=== PATIENT | male | born 1955 | race Caucasian/White ===

== ENCOUNTER → 2016-12-22 | Day surgery (SDC) | payer BC ==
--- NOTE | 2016-10-31 07:18 | History & Physical Bridge Note ---
H&P Re-Evaluation Bridge Note: I have examined the patient, reviewed the History & Physical and in the interval since the performance of the History & Physical I have noted the following changes of clinical significance: No changes noted
[2016-12-09 10:00] VITALS: BMI 31.0
--- NOTE | 2016-12-09 10:35 | PAT Medication Instructions ---
Service Date Dec 09, 2016. Current Home Medication List Ibuprofen (Advil), 800 MG PO PRN Omeprazole (Prilosec), 20 MG PO QAM PRN for RN [Bp Med], 1 TAB PO QAM [Cholesterol Med], 1 TAB PO QPM [Metoprol], 1 TAB PO QAM Medication Instructions For Your Scheduled Surgery Ibuprofen (Advil), 800 MG PO PRN (check with surgeon's office for instructions) [Bp Med], 1 TAB PO QAM (call Mary at PAT office with name and instructions will be given) [Cholesterol Med], 1 TAB PO QPM (call Mary at PAT office with name and instructions will be given) - Take the following medications the morning of surgery with a sip of water: Metoprolol 1 TAB PO QAM Omeprazole (Prilosec), 20 MG PO QAM PRN for RN If you have any questions please call us at [phone] or [phone] ( Mary) or [phone]
--- NOTE | 2016-12-09 10:59 | DIAGNOSTIC IMAGING REPORT ---
CHEST PREADMISSION(PA/LAT) CLINICAL HISTORY: Preoperative chest COMPARISON STUDY: No previous studies for comparison. FINDINGS: The cardiac and mediastinal contours are normal. There is no evidence of focal pulmonary consolidation. There is no evidence of failure. No pleural effusions are visualized.[ IMPRESSION: No active disease in the chest. Electronically signed by: Juwan Miranda M.D. 12/09/2016 10:57 AM Dictated Date/Time: 12/09/2016 10:57 AM
[2016-12-09 11:38] LABS: BASO % 0.5 %; BASO ABS # 0.05 K/uL (0-0.2); COMPLETE YES; EOS % 2.5 %; HEMATOCRIT 44.1 % (42-52); IG% 0.6 %; LYMPH % 22.9 %; MEAN CELL VOLUME 87.7 fL (80-100); MEAN CORPUSCULAR HEMOGLOBIN 30.2 pg (25-34); MEAN CORPUSCULAR HGB CONC 34.5 g/dl (32-36); MEAN PLATELET VOLUME 8.9 fL (7.4-10.4); MONO % 10.3 %; NEUT % 63.2 %; PLATELET COUNT 381 K/uL (130-400); RED BLOOD COUNT 5.03 M/uL (4.7-6.1); WHITE BLOOD COUNT 9.62 K/uL (4.8-10.8)
[2016-12-09 12:02] LABS: BUN/CREATININE RATIO 13.9 (10-20); CALCIUM 9.2 mg/dl (8.5-10.1); CREATININE 0.97 mg/dl (0.60-1.40); POTASSIUM 4.3 mmol/L (3.5-5.1)
--- NOTE | 2016-12-18 14:07 | HISTORY & PHYSICAL EXAMINATION ---
DATE OF ADMISSION: 12/22/2016 HISTORY OF PRESENT ILLNESS: The patient presents with complaint of left leg pain with numbness and tingling. He is wearing an AFO brace. He is always changing positions to alleviate his pain. Denies right lower extremity pain. PAST MEDICAL HISTORY: Significant for hypertension. PAST SURGICAL HISTORY: Significant for lumbar laminectomy. ALLERGIES: None listed. MEDICATIONS: None listed. SOCIAL HISTORY: He works as a truck loader and unloader. He is . He denies alcohol. Denies tobacco. REVIEW OF SYSTEMS: Significant for back and left leg pain. FAMILY HISTORY: Noncontributory. PHYSICAL EXAMINATION: VITAL SIGNS: 6 feet tall, 223 pounds. HEAD, EYES, EARS, NOSE, AND THROAT: Speech appropriate. CARDIOPULMONARY: No gross abnormalities. ABDOMEN: Soft, nontender. GENITOURINARY: Deferred. NEUROLOGIC: Cranial nerves II-XII intact. MUSCULOSKELETAL: He has a positive tension sign on the left, negative on the right. He has weakness over the left anterior tibialis, EHL and plantar flexion with 2/5. He has some paresthesias on the left foot as well as some swelling of the left foot. Strength is intact right leg. ASSESSMENT: L4-L5 disc herniation, establish foot drop. PLAN: At this point in time, he has failed conservative therapy and still quite limited due to the pain. He wants to pursue surgical intervention. Surgery would require lumbar laminectomy at L4-L5 on the left. Risks, benefits, pros, cons, and alternatives were outlined in detail. VELMA
[~2016-12-22] VITALS: Ht 182.9 cm; Wt 103.7 kg
[~2016-12-22] MED LIST: ACETAMINOPHEN 325 MG TAB PO PRN; AMLO5TAB2 PO; ATROPINE SULFATE 0.1 MG/ML 5ML SYR IV PRN; BACITRACIN 50000 UNIT VIAL IR ONE; BUPIVACAINE/EPINEPHRINE 0.5% MPF 1:200,000 30 ML VIAL INJ ONE; CEFAZOLIN 1000MG/55 ML D5W IV SCH; CEFAZOLIN SOD 1 GM VIAL ONE; CYCL5TAB PO; DEXAMETHASONE SOD INJ 4 MG/ML VIAL ONE; EpHEDrine SULFATE INJ 50 MG/ML AMP IV PRN; FENTANYL CITRATE INJ 50 MCG/1 ML 2 ML VIAL ONE; FLOSEAL HEMOSTATIC MATRIX 5ML TOP ONE; FLUMAZENIL 0.1 MG/1 ML 10 ML VIAL IV PRN; GLYCOPYRROLATE INJ 0.2 MG/ML VIAL ONE; HYDROmorphone INJ 1 MG/ML SYR IV PRN; HYDROmorphone INJ 2 MG/ML SYR/VIAL IV PRN; IBUP-1050 PO; KETOROLAC TROMETHAMINE 30 MG/ML VIAL IV. PRN; LABETALOL HCL IV 5 MG/ML 20ML IV PRN; LACTATED RINGER'S 1000ML 1,000 ML IV SCH; LIDOCAINE HCL 2% 2 ML VIAL (20MG/ML) ONE; METO1TAB66 PO; MIDAZOLAM HCL 1 MG/ML 2ML VIAL ONE; NALOXONE HCL 0.4 MG/1 ML VIAL/CARP IV PRN; NEOSTIGMINE METHYLSULFATE 1 MG/ML 10ML VIAL ONE; ONDANSETRON INJ 2 MG/ML 2 ML VIAL ONE; OXYCODONE HCL IR 5 MG TAB (IMMEDIATE RELEASE) PO PRN; PRLSR20 PO; PROMETHAZINE HCL INJ 12.5 MG in SODIUM CHLORIDE 0.9% 50ML 50 ML IV PRN; PROPOFOL IV EMULSION 10 MG/ML 20 ML VIAL IV ONE; ROCURONIUM BROMIDE 10 MG/ML 5 ML VIAL ONE; RXC5 PO; SIMV40TA4 PO; SIMV80TA2 PO; [UNRECOGNIZED DRUG - OTHER]
[2016-12-22 06:47] VITALS: BP 143/81; PULSE 85; TEMP 36.7; O2SAT 94; Ht 182.9 cm; Wt 103.7 kg
--- NOTE | 2016-12-22 08:44 | Discharge Instructions ---
Discharge Instructions Admission Reason for Admission: Lumbar Spinal Stenosis Discharge Discharge Diagnosis / Problem: stenosis Discharge Goals Goal(s): Improve function Activity Recommendations Activity Limitations: per Instructions/Follow-up section . Instructions / Follow-Up Instructions / Follow-Up ACTIVITY RECOMMENDATIONS: SELF CARE INSTRUCTIONS AFTER A LAMINECTOMY 1. No prolonged sitting (less than 30 minutes for the first 3 weeks after surgery). 2. No bending, lifting more than 5 pounds, or twisting (roll like a log when turning in bed). 3. You may shower 3 days after surgery if no drainage from wound. Thoroughly dry wound. Do not soak in the tub. 4. Please walk as much as you can for exercise. Gradually increase the distance that you walk as your endurance increases. 5. You may drive in 7-10 days if you are comfortable and no longer requiring pain medications. SPECIAL CARE INSTRUCTIONS: VERY IMPORTANT TO READ AND REVIEW A. Your surgical incision has been closed with a cosmetic suture under the skin that will dissolve in about 6 weeks. In 14 days, you can use a pair of clean scissors and cut the suture that is left outside of the skin at the ends of your incision. B. Complications are uncommon, but please contact us if you have any signs or symptoms of: 1. wound infection (fever higher than 102.5 degrees F, redness, separation of wound, drainage, or increasing pain from the incision) 2. blood clots in legs (pain, swelling, redness and warmth in legs) 3. urinary tract infection (fever higher than 102.5 degrees, burning upon urination or increased frequency of urination) 4. nerve problems (inability to walk on your toes or heels, numbness, loss of bowel or bladder control) 5. any other symptoms that concern you. C. Please call the office at if you have any concerns or questions about your operation or recovery. MANAGING PAIN AFTER SPINAL SURGERY 1. Narcotic medication is intended for short-term use and will be provided for surgical pain. Surgical pain usually lasts for a period of 4-6 weeks. Narcotic medication includes Percocet, Vicodin, Darvocet, Tylenol #3 or Lortab. 2. Longer-term pain is more appropriately treated with non-narcotic medication such as Tylenol ES. 3. Muscle spasm is not appropriately treated with narcotics. Muscle relaxers such as Soma, Flexeril or Skelaxin can be used along with Tylenol ES. 4. Remember that we all live with some "aches and pains". This is not unusual or uncommon after an injury or as we get older. 5. We will provide appropriate medication within the normal guidelines of their prescribed use. We will also be very cautious and aware of potential abuse and extended duration of patients' medication needs. 6. Please allow 2-3 days to process refills. Prescriptions will not be mailed but must be picked up at the office. FOLLOW UP VISIT: Keep your scheduled follow-up appointment. Any questions, please call the office at . Current Hospital Diet Patient's current hospital diet: Discharge Diet Recommended Diet: Regular Diet Procedures Procedures Performed: Left L4-L5 Discectomy Pending Studies Studies pending at discharge: no Medical Emergencies . Who to Call and When: Medical Emergencies: If at any time you feel your situation is an emergency, please call 911 immediately. . Non-Emergent Contact Non-Emergency issues call your: Primary Care Provider . "Provider Documentation" section prepared by Guicho Gooden. VTE Core Measure Inpt VTE Proph given/why not?: Dian Bates, SCD's
--- NOTE | 2016-12-22 09:09 | OPERATIVE REPORT ---
DATE OF OPERATION: 12/22/2016 PREOPERATIVE DIAGNOSIS: Herniated nucleus pulposus, L4-5 on the left. POSTOPERATIVE DIAGNOSIS: Same. PROCEDURE PERFORMED: Lumbar laminotomy, excision of herniated fragment L4-L5 on the left. SURGEON: Dr. Guicho Gooden. CDL INSTRUCTOR: LIV Chadwick. ANESTHESIA: General. DISPOSITION: The patient awakened and taken to PACU in stable condition. HISTORY OF PATIENT'S PROBLEMS: A 61-year-old male who presents with above-mentioned diagnosis. After failing an extensive course of nonoperative care, elected to undergo the above-mentioned procedure. Risks, benefits, pros, cons and alternatives outlined in detail preoperatively. PROCEDURE: The patient was met with preoperatively, case discussed and questions were addressed. At that point the patient was taken back to operative suite and after undergoing successful general intubation by the department of Anesthesia was placed in prone position on Vicente table atop Pedro frame. All bony prominences were well padded and the eyes were inspected to ensure there was no external pressure placed upon them. At this point, the lumbar spine was prepped and draped in normal sterile fashion. With the assistance of fluoroscopy, we identified the 4-5 disc space. Midline incision was carried out overlying this region. Sharp dissection with the assistance of Bovie electrocautery was performed down to and exposing the interlaminar space at L4-L5 on the left. A self-retaining retractor was placed. I then performed a hemilaminotomy, excision of the medial aspect of the facet and the lateral aspect of the ligamentum flavum to expose a compressed traversing L5 nerve root. This was explored to ensure that it was adequately decompressed distally. It was mobilized medially and any loose fragments of discal material were identified. The nerve root appeared to have significant decompression after exploration. The incision was then copiously irrigated and closed with 1-0 Vicryl in the fascia, 2-0 Vicryl subcutaneously, 4-0 Monocryl for final skin closure. Steri-Strips and sterile dressing placed. The patient was awakened and taken to PACU in stable condition. Due to the complex nature of the procedure, the entire surgery was performed with the operational assistance of LIV Chadwick. The training program assistant, under direct supervision, was involved in the actual performance of all aspects of the surgical procedure including hemostasis, tissue retraction and incision, instrument management, patient positioning, and wound closure. I attest to the content of the Intraoperative Record and any orders documented therein. Any exceptio ns are noted below.
--- NOTE | 2016-12-22 09:39 | Anesthesiology Progress Note ---
Anesthesia Post Op Note Date & Time Dec 22, 2016 at 09:38 Vital Signs Pain Intensity: 0 Vital Signs Past 12 Hours Date Time Temp Pulse Resp B/P Pulse Ox O2 Delivery O2 Flow Rate FiO2 12/22/16 09:35 80 16 130/78 96 Nasal Cannula 2 12/22/16 09:25 83 16 135/82 95 Nasal Cannula 2 12/22/16 09:15 78 12 137/81 95 Mask 10 12/22/16 09:05 81 12 136/75 95 Mask 10 12/22/16 08:59 36.8 81 12 138/81 98 Mask 10 12/22/16 06:47 36.7 85 18 143/81 94 Room Air Notes Mental Status: alert / awake / arousable, participated in evaluation Pt Amnestic to Procedure: Yes Nausea / Vomiting: adequately controlled Pain: adequately controlled Airway Patency, RR, SpO2: stable & adequate BP & HR: stable & adequate Hydration State: stable & adequate Anesthetic Complications: no major complications apparent
[2016-12-22 11:05] VITALS: BP 111/68; PULSE 80; TEMP 36.9; O2SAT 93
--- NOTE | 2016-12-22 12:57 | DIAGNOSTIC IMAGING REPORT ---
INTRAOPERATIVE FLUOROSCOPIC SPOT FILM OF THE LUMBAR SPINE SINGLE VIEW CLINICAL HISTORY: L4-L5 DISCECTOMY COMPARISON STUDY: None FINDINGS: A single fluoroscopic spot images provided for interpretation. 5 seconds of fluoroscopic time was utilized. This reveals a metallic probe projected posterior aspect of the L4-5 disc. IMPRESSION: Intraoperative localization as described above. Electronically signed by: Juwan Miranda M.D. 12/22/2016 12:55 PM Dictated Date/Time: 12/22/2016 12:54 PM
== END | disposition home or self-care (01) ==
LOC: C.ACU 05:17
PROVIDERS: ATTEND Orthopaedic Surgery Orthopaedic Surgery of the Spine
DX: M51.16 Intervertebral disc disorders with radiculopathy, lumbar region (principal); I10 Essential (primary) hypertension

== ENCOUNTER → 2017-05-15 | Outpatient (CLI) | payer OTHER ==
[~2017-05-15] MED LIST changes: -ACETAMINOPHEN 325 MG TAB PO PRN; -ATROPINE SULFATE 0.1 MG/ML 5ML SYR IV PRN; -BACITRACIN 50000 UNIT VIAL IR ONE; -BUPIVACAINE/EPINEPHRINE 0.5% MPF 1:200,000 30 ML VIAL INJ ONE; -CEFAZOLIN 1000MG/55 ML D5W IV SCH; -CEFAZOLIN SOD 1 GM VIAL ONE; -DEXAMETHASONE SOD INJ 4 MG/ML VIAL ONE; -EpHEDrine SULFATE INJ 50 MG/ML AMP IV PRN; -FENTANYL CITRATE INJ 50 MCG/1 ML 2 ML VIAL ONE; -FLOSEAL HEMOSTATIC MATRIX 5ML TOP ONE; -FLUMAZENIL 0.1 MG/1 ML 10 ML VIAL IV PRN; -GLYCOPYRROLATE INJ 0.2 MG/ML VIAL ONE; -HYDROmorphone INJ 1 MG/ML SYR IV PRN; -HYDROmorphone INJ 2 MG/ML SYR/VIAL IV PRN; -KETOROLAC TROMETHAMINE 30 MG/ML VIAL IV. PRN; -LABETALOL HCL IV 5 MG/ML 20ML IV PRN; -LACTATED RINGER'S 1000ML 1,000 ML IV SCH; -LIDOCAINE HCL 2% 2 ML VIAL (20MG/ML) ONE; +METO-452 PO; -METO1TAB66 PO; -MIDAZOLAM HCL 1 MG/ML 2ML VIAL ONE; -NALOXONE HCL 0.4 MG/1 ML VIAL/CARP IV PRN; -NEOSTIGMINE METHYLSULFATE 1 MG/ML 10ML VIAL ONE; -ONDANSETRON INJ 2 MG/ML 2 ML VIAL ONE; -OXYCODONE HCL IR 5 MG TAB (IMMEDIATE RELEASE) PO PRN; -PROMETHAZINE HCL INJ 12.5 MG in SODIUM CHLORIDE 0.9% 50ML 50 ML IV PRN; -PROPOFOL IV EMULSION 10 MG/ML 20 ML VIAL IV ONE; -ROCURONIUM BROMIDE 10 MG/ML 5 ML VIAL ONE
--- NOTE | 2017-05-20 10:15 | DIAGNOSTIC IMAGING REPORT ---
LUMBAR SPINE MRI HISTORY: SCIATICA W/LUMBAR SPINE PAIN TECHNIQUE: Multiplanar multisequence MRI of the lumbar spine was performed without the use of contrast. COMPARISON: None. FINDINGS: For the purpose of the report the L5-S1 disc space will be located on axial image 23 of 25. No fracture or subluxation. The conus terminates at the T12-L1 disc space level. Mild disc space narrowing at L5-S1. Partially visualized 12 mm T2 hyperintense lesion within the left kidney. This is incompletely characterized on this noncontrasted favors a cyst. Paraspinal soft tissues are unremarkable. T12-L1: Small focal central disc protrusion demonstrating inferior subligamentous migration. However, no significant central canal or neural foraminal narrowing. L1-L2: No significant central canal or neural foraminal narrowing. L2-L3: No significant central canal or neural foraminal narrowing. L3-L4: No significant central canal or neural foraminal narrowing. L4-L5: Prior left hemilaminectomy. There is mild edema and scarlike densities posterior to the left hemilaminectomy site. There is a central/left paracentral broadbase disc protrusion which measures 1.8 (TV) x 0.5 (AP) cm. There is also small broad-based posterior disc bulge. This results in moderate to severe central canal narrowing, left greater than right with mild left-sided neural foraminal narrowing. This disc protrusion slightly compresses the transiting left L5 nerve root. L5-S1: Evidence for prior left hemilaminectomy. Small broad-based posterior disc bulge with a tiny focal central disc protrusion demonstrating inferior subligamentous migration. No significant central canal narrowing. There is severe left and mild right neural foraminal narrowing due to the facet hypertrophy. There is clumping of the nerve roots at this level suggestive of an arachnoiditis. IMPRESSION: 1. Postoperative changes consistent with prior left L4-L5 and L5-S1 hemilaminectomies. 2. There is a broad-based posterior disc bulge with a central/left paracentral broadbase disc protrusion at L4-5 resulting in moderate to severe central canal narrowing. This likely compresses the transiting left L5 nerve root. 3. Severe left and mild right neural foraminal narrowing at L5-S1 level due to the facet hypertrophy. 4. Clumping of the nerve roots at the L5 level likely representing an arachnoiditis. Electronically signed by: Nico Wright M.D. 05/20/2017 10:14 AM Dictated Date/Time: 05/15/2017 11:25 PM
== END | disposition home or self-care (01) ==
LOC: C.MRI 18:27
PROVIDERS: ATTEND Orthopaedic Surgery Orthopaedic Surgery of the Spine
DX: M53.9 Dorsopathy, unspecified (principal); M51.26 Other intervertebral disc displacement, lumbar region

== ENCOUNTER 2017-06-29 10:05 | Inpatient (IN) | payer OTHER ==
[2017-06-12 11:10] VITALS: BMI 33.0
--- NOTE | 2017-06-12 11:41 | PAT Medication Instructions ---
Service Date Jun 12, 2017. Current Home Medication List Amlodipine Besylate (Norvasc), 1 TAB PO QAM Cyclobenzaprine Hcl (Flexeril), 5-10 MG PO TID PRN for N Ibuprofen (Advil), 800 MG PO PRN Metoprolol Succinate (Toprol Xl), 1 TAB PO QAM Omeprazole (Prilosec), 20 MG PO QAM PRN for RN Simvastatin (Zocor), 80 MG PO HS Medication Instructions For Your Scheduled Surgery - Hold the following medications the morning of surgery: Ibuprofen (Advil), 800 MG PO PRN (otherwise okay to continue per surgeon) Cyclobenzaprine Hcl (Flexeril), 5-10 MG PO TID PRN - Take the following medications the morning of surgery with a sip of water OTHERWISE NOTHING TO EAT OR DRINK AFTER MIDNIGHT: Omeprazole (Prilosec), 20 MG PO QAM PRN Amlodipine Besylate (Norvasc), 1 TAB PO QAM Metoprolol Succinate (Toprol Xl), 1 TAB PO QAM - Take the following medications as scheduled the night before surgery: Simvastatin (Zocor), 80 MG PO HS Ibuprofen (Advil), 800 MG PO PRN Cyclobenzaprine Hcl (Flexeril), 5-10 MG PO TID PRN If you have any questions please call us at [phone] or [phone] or [phone]
[2017-06-12 12:19] LABS: BASO % 0.5 %; BASO ABS # 0.04 K/uL (0-0.2); COMPLETE YES; HEMATOCRIT 44.2 % (42-52); IG% 0.6 %; LYMPH % 28.1 %; LYMPH ABS # 2.38 K/uL (1.2-3.4); MEAN CELL VOLUME 86.8 fL (80-100); MEAN CORPUSCULAR HGB CONC 35.7 g/dl (32-36); MEAN PLATELET VOLUME 8.6 fL (7.4-10.4); MONO % 10.7 %; NEUT % 58.1 %; PLATELET COUNT 335 K/uL (130-400); RED BLOOD COUNT 5.09 M/uL (4.7-6.1); WHITE BLOOD COUNT 8.47 K/uL (4.8-10.8)
[2017-06-12 12:42] LABS: BUN/CREATININE RATIO 13.6 (10-20); CALCIUM 9.5 mg/dl (8.5-10.1); POTASSIUM 4.4 mmol/L (3.5-5.1)
[2017-06-12 16:36] LABS: URINE APPEARANCE CLEAR (CLEAR); URINE BILIRUBIN NEG (NEG); URINE COLOR YELLOW; URINE EPITHELIAL CELL AUTO 0-5 /lpf (0-5); URINE NITRITE NEG (NEG); URINE PH 7.5 (4.5-7.5); URINE SPECIFIC GRAVITY 1.012 (1.000-1.030); UROBILINOGEN NEG (NEG)
[2017-06-12 16:50] LABS: MANUAL MICROSCOPIC REQUIRED? NO; REVIEW REQ? NO
[~2017-06-29] VITALS: Ht 182.9 cm; Wt 111.2 kg
[2017-06-29] VITALS (7 sets, daily range): BP systolic 136–170; BP diastolic 79–104; PULSE 80–92; TEMP 36.3–36.6; O2SAT 94–100; Ht 182.9 cm; Wt 111.2 kg
[~2017-06-29 10:05] MED LIST changes: +CEFAZOLIN 2000 MG/60 ML D5W IV SCH; +LACTATED RINGER'S 1000ML 1,000 ML IV SCH; -METO-452 PO; +METO1TAB66 PO; -RXC5 PO; -SIMV40TA4 PO; -[UNRECOGNIZED DRUG - OTHER]
[2017-06-29] MEDS ORDERED: PHENYLEPHRINE 100MCG/ML 5ML SYR IV PRN (10:30)
[2017-06-29] MEDS ORDERED: ONDANSETRON INJ 2 MG/ML 2 ML VIAL IV PRN (10:30)
[2017-06-29] MEDS ORDERED: ATROPINE SULFATE 0.1 MG/ML 5ML SYR IV PRN (10:30)
[2017-06-29] MEDS ORDERED: MEPERIDINE HCL 25 MG/ML CARP IV PRN (10:30)
[2017-06-29] MEDS ORDERED: NALOXONE HCL 0.4 MG/1 ML VIAL/CARP IV PRN ×3 (10:30→14:45)
[2017-06-29] MEDS ORDERED: MoRPHine SULFATE 10 MG/ML CARP/VIAL IV PRN (10:30)
[2017-06-29] MEDS ORDERED: LABETALOL HCL IV 5 MG/ML 20ML IV PRN (10:30)
[2017-06-29] MEDS ORDERED: EpHEDrine SULFATE INJ 50 MG/ML AMP IV PRN (10:30)
[2017-06-29] MEDS ORDERED: FLUMAZENIL 0.1 MG/1 ML 10 ML VIAL IV PRN (10:30)
--- NOTE | 2017-06-29 11:17 | History and Physical ---
History & Physical Date Jun 29, 2017. Chief Complaint Back and leg pain History of Present Illness The patient is a 61 year old male with complaints of back and leg pain Additional History Hepatic Disease: No Endocrine Disorder: No Kidney Disease: No Hypertension: Yes Heart Disease: No Bleeding Tendencies: No Infectious Diseases: No Allergies Coded Allergies: No Known Allergies (Unverified , 06/29/17) Home Medications Scheduled Amlodipine Besylate (Norvasc), 1 TAB PO QAM Ibuprofen (Advil), 800 MG PO PRN Metoprolol Succinate (Toprol Xl), 1 TAB PO QAM Simvastatin (Zocor), 80 MG PO HS Scheduled PRN Cyclobenzaprine Hcl (Flexeril), 5-10 MG PO TID PRN for N Omeprazole (Prilosec), 20 MG PO QAM PRN for RN Physical Examination Skin: warm/dry, no rash Eyes: normal inspection, EOMI, sclerae normal ENT: normal ENT inspection, pharynx normal Head: normocephalic, atraumatic Neck: supple, no adenopathy, trachea midline Respiratory/Chest: lungs clear, normal breath sounds, no respiratory distress Cardiovascular: regular rate, rhythm, no edema, no murmur Abdomen / GI: normal bowel sounds, non tender Back: normal inspection Extremities: normal inspection, normal range of motion Neurologic/Psych: no motor/sensory deficits, alert, normal reflexes, oriented x 3 Diagnosis Lumbar spinal stenosis Plan of Treatment Revision decompression L4 5 L5-S1 with fusion.
[2017-06-29] MEDS ORDERED: FENTANYL CITRATE INJ 50 MCG/1 ML 2 ML VIAL ONE ×3 (11:24→14:47)
[2017-06-29] MEDS ORDERED: MIDAZOLAM HCL 1 MG/ML 2ML VIAL ONE (11:24)
[2017-06-29] MEDS ORDERED: SODIUM CHLORIDE 0.9% PF 50 ML VIAL ONE (11:55)
[2017-06-29] MEDS ORDERED: BUPIVACAINE/EPINEPHRINE 0.5% MPF 1:200,000 10 ML VIAL ONE ×2 (11:55→11:56)
[2017-06-29] MEDS ORDERED: BACITRACIN 50000 UNIT VIAL ONE (11:56)
[2017-06-29] MEDS ORDERED: HYDROmorphone INJ 2 MG/ML SYR/VIAL ONE ×2 (12:38→15:05)
[2017-06-29] MEDS ORDERED: LIDOCAINE HCL 2% 2 ML VIAL (20MG/ML) ONE (13:46)
[2017-06-29] MEDS ORDERED: NEOSTIGMINE METHYLSULFATE 1 MG/ML 10ML VIAL ONE ×2 (13:46→17:03)
[2017-06-29] MEDS ORDERED: ONDANSETRON INJ 2 MG/ML 2 ML VIAL ONE (13:46)
[2017-06-29] MEDS ORDERED: EpHEDrine SULFATE 50MG/5ML SYR ONE (13:46)
[2017-06-29] MEDS ORDERED: PROPOFOL IV EMULSION 10 MG/ML 20 ML VIAL IV ONE (13:46)
[2017-06-29] MEDS ORDERED: DEXAMETHASONE SOD INJ 4 MG/ML VIAL ONE (13:46)
[2017-06-29] MEDS ORDERED: GLYCOPYRROLATE INJ 0.2 MG/ML VIAL ONE (13:46)
[2017-06-29] MEDS ORDERED: ROCURONIUM BROMIDE 10 MG/ML 5 ML VIAL ONE (13:46)
[2017-06-29] MEDS ORDERED: FLOSEAL HEMOSTATIC MATRIX 10ML TOP ONE (14:30)
[2017-06-29] MEDS: LACTATED RINGER'S 1000ML 1,000 ML IV SCH ×2 (14:40→21:39)
[2017-06-29] MEDS ORDERED: SODIUM CHLORIDE 0.9% 1000ML 1,000 ML IV SCH (14:40)
[2017-06-29] MEDS ORDERED: MAGNESIUM HYDROXIDE SUSP 30 ML UDC PO PRN (14:45)
[2017-06-29] MEDS ORDERED: DO NOT ADMINISTER PNEUMOCOCCAL VACCINE PRN ×2 (14:45)
[2017-06-29] MEDS ORDERED: SOD PHOSPHATE/SOD BIPHOSPHATE ENEMA 132 ML BTL PR PRN (14:45)
[2017-06-29] MEDS ORDERED: DO NOT ADMINISTER FLU VACCINE PRN ×3 (14:45)
[2017-06-29] MEDS ORDERED: LORAZEPAM 0.5 MG TAB PO PRN (14:45)
[2017-06-29] MEDS ORDERED: FAMOTIDINE 20 MG TAB PO PRN (14:45)
[2017-06-29] MEDS ORDERED: PROMETHAZINE HCL INJ 12.5 MG in SODIUM CHLORIDE 0.9% 50ML 50 ML IV PRN (14:45)
[2017-06-29] MEDS ORDERED: ACETAMINOPHEN 500 MG TAB PO PRN (14:45)
[2017-06-29] MEDS ORDERED: hydrOXYzine HCL 25 MG TAB PO PRN (14:45)
[2017-06-29] MEDS ORDERED: METOCLOPRAMIDE HCL INJ 5 MG/ML 2 ML VIAL IV PRN (14:45)
[2017-06-29] MEDS ORDERED: LORAZEPAM INJ 0.5 MG in SYRINGE 0.75 ML IV PRN (14:45)
[2017-06-29] MEDS ORDERED: ACETAMINOPHEN IV 100 ML IV PRN (14:45)
--- NOTE | 2017-06-29 14:46 | [facility] Operative Report ---
Operative Report Operative Date Jun 29, 2017. Pre-Operative Diagnosis Lumbar Stenosis Post-Operative Diagnosis same Procedure(s) Performed #1 revision decompression medial facetectomies foraminotomies L4 5 L5-S1. #2 posterior spinal fusion L4 5 L5-S1. #3 placement of posterior segmental instrumentation L4 5 L5-S1. #4 interbody fusion L4 5. #5 placement peek Cage 14 x 26 mm L4 5. 6 placement locally harvested morcellized autograft posterior gutters. #7 placement infuse collagen sponge by mask graft the posterior gutters and Jojo bone graft in the interbody space. Surgeon Dr. Guicho Gooden Python Consultant Surgeon(s) Trinh Platt PA-C Findings Severe spinal stenosis Specimens none per surgeon Description of Procedure Patient was met with probably case discussed all questions are dressed with the patient was taken back to the suite and after undergoing successful intubation placed in prone position injectables frame. All bony promises well-padded eyes inspected to ensure no external pressure. Lumbar spines and prepped and draped in the normal sterile fashion. Sharp dissection assistance of Bovie cautery performed onto an exposing the remaining lamina and transverse processes of L4- L5 and the alar bilaterally. From a caudal to cephalad fashion complete L5 and L4 was performed addressing severe lateral recess and foraminal disease. After this complete pedicle screws then placed in L4 L5 S1 levels bilaterally with assistance of fluoroscopy the purposes kateryna placed. Through a trans-foraminal approach on the left complete discectomy of L4 5 was performed and plate could subcortical need bone and a 14 x 26 mm peek cage filled with Jojo bone graft tapped in position. The rods and locked and final position bilaterally. Transverse processes of L4-L5 and the sacral alar burred to subcortical bleeding bone infuse collagen sponge mask graft and locally harvested morcellized autograft was placed in the posterior lateral gutters. 15 round MARY drain inserted. Incision then closed with 1 Vicryl in the fascia 2-0 Vicryl subcutaneously for Monocryl for final skin closure Steri-Strips are displaced patient we can taken to PACU stable condition. Please note Trinh Ruiz was present at the entire procedure involved in patient positioning complex portions of the procedure and final skin closure. I attest to the content of the Intraoperative Record and any orders documented therein. Any exceptions are noted below.
--- NOTE | 2017-06-29 14:51 | DIAGNOSTIC IMAGING REPORT ---
INTRAOPERATIVE LUMBAR SPINE 2 VIEWS CLINICAL HISTORY: L4-S1 DECOMPRESSION/FUSION/INTERBODY COMPARISON STUDY: MRI dated 05/15/2017 FINDINGS: 24 seconds of fluoroscopic time was utilized. 2 intraoperative fluoroscopic spot images are provided for interpretation. There are postsurgical changes of an L4-5 discectomy and interbody fusion. There is posterior pedicle screw fixation with pedicle screws the L4, L5, and S1 levels with adjoining spinal rods. IMPRESSION: Postoperative changes as described above. Electronically signed by: Juwan Miranda M.D. 06/29/2017 2:49 PM Dictated Date/Time: 06/29/2017 2:48 PM
[2017-06-29] MEDS: HYDROmorphone INJ 1 MG/ML SYR IV PRN ×4 (15:05→15:20)
[2017-06-29] MEDS: HYDROmorphone HCL 0.5MG/ML 50 ML CASSETTE IV PRN ×3 (15:10→22:51)
[2017-06-29] MEDS ORDERED: SUCCINYLCHOLINE 100MG/5ML SYR IV ONE (15:51)
--- NOTE | 2017-06-29 16:04 | Anesthesiology Progress Note ---
Anesthesia Post Op Note Date & Time Jun 29, 2017 at 16:03 Vital Signs Pain Intensity: 4 Vital Signs Past 12 Hours Date Time Temp Pulse Resp B/P (MAP) Pulse Ox O2 Delivery O2 Flow Rate FiO2 06/29/17 15:30 36.4 87 16 145/85 95 Nasal Cannula 4 06/29/17 15:20 87 16 145/94 98 Oxymask 10 06/29/17 15:10 87 16 129/102 98 Oxymask 10 06/29/17 15:00 36.6 97 16 149/92 98 Oxymask 10 06/29/17 10:24 36.3 88 20 170/104 98 Room Air Notes Mental Status: alert / awake / arousable, participated in evaluation Pt Amnestic to Procedure: Yes Nausea / Vomiting: adequately controlled Pain: adequately controlled Airway Patency, RR, SpO2: stable & adequate BP & HR: stable & adequate Hydration State: stable & adequate Anesthetic Complications: no major complications apparent
[2017-06-29] MEDS ORDERED: KETAMINE HCL INJ 50 MG/ML 10 ML VIAL ONE (16:15)
[2017-06-29] MEDS: ONDANSETRON INJ 2 MG/ML 2 ML VIAL IV PRN (16:42)
[2017-06-29] MEDS ORDERED: MoRPHine SULFATE 1 MG/ML 50 ML PCA CASS ONE (18:49)
[2017-06-29] MEDS ORDERED: MoRPHine SULFATE 10 MG/ML CARP/VIAL ONE (18:53)
[2017-06-29] MEDS ORDERED: MORPHINE SULFATE 1 MG/ML 50 ML PCA SYR IV PRN (19:00)
[2017-06-29] MEDS ORDERED: NURSING VERBAL MED ORDER ONE ×2 (19:00→19:15)
[2017-06-29] MEDS: DEXAMETHASONE INJ 6 MG in SYRINGE 0 ML IV SCH (20:17)
[2017-06-29] MEDS: CEFAZOLIN IV 2,000 MG in DEXTROSE 5% 50ML 50 ML IV SCH (20:17)
[2017-06-29] MEDS: DOCUSATE SODIUM/SENNA 50/8.6MG TAB PO SCH (21:39)
[2017-06-29] MEDS: SIMVASTATIN 80 MG TAB PO SCH (21:39)
[2017-06-30] VITALS (9 sets, daily range): BP systolic 136–161; BP diastolic 74–88; PULSE 87–112; TEMP 36.5–36.9; O2SAT 93–96
[2017-06-30] MEDS: LACTATED RINGER'S 1000ML 1,000 ML IV SCH (03:55)
[2017-06-30] MEDS: DEXAMETHASONE INJ 6 MG in SYRINGE 0 ML IV SCH ×2 (03:56→12:23)
[2017-06-30] MEDS: CEFAZOLIN IV 2,000 MG in DEXTROSE 5% 50ML 50 ML IV SCH (03:56)
[2017-06-30] MEDS: ONDANSETRON INJ 2 MG/ML 2 ML VIAL IV PRN (04:51)
[2017-06-30] MEDS ORDERED: NURSING DECISION MEDICATION ORDER SCH (05:45)
[2017-06-30 05:46] LABS: BASO % 0.1 %; BASO ABS # 0.01 K/uL (0-0.2); COMPLETE YES; HEMATOCRIT 39.3 % (42-52); IG% 0.4 %; LYMPH % 4.7 %; LYMPH ABS # 0.76 K/uL (1.2-3.4); MEAN CELL VOLUME 88.5 fL (80-100); MEAN CORPUSCULAR HEMOGLOBIN 30.4 pg (25-34); MEAN CORPUSCULAR HGB CONC 34.4 g/dl (32-36); MEAN PLATELET VOLUME 8.7 fL (7.4-10.4); MONO % 4.5 %; NEUT % 90.3 %; PLATELET COUNT 341 K/uL (130-400); RED BLOOD COUNT 4.44 M/uL (4.7-6.1); WHITE BLOOD COUNT 16.16 K/uL (4.8-10.8)
[2017-06-30] MEDS ORDERED: DC PCA ONE (06:00)
[2017-06-30] MEDS ORDERED: HYDROmorphone INJ 0.5 MG/0.5 ML SYR IV PRN (06:00)
[2017-06-30] MEDS ORDERED: HYDROmorphone INJ 1 MG/ML SYR IV PRN (06:00)
[2017-06-30 06:14] LABS: BUN/CREATININE RATIO 14.5 (10-20); CALCIUM 8.9 mg/dl (8.5-10.1); CREATININE 1.2 mg/dl (0.60-1.40)
--- NOTE | 2017-06-30 08:37 | Anesthesiology Progress Note ---
Anesthesia Post Op Note Date & Time Jun 30, 2017 at 08:36 Vital Signs Pain Intensity: 8.0 Vital Signs Past 12 Hours Date Time Temp Pulse Resp B/P (MAP) Pulse Ox O2 Delivery O2 Flow Rate FiO2 06/30/17 07:39 95 Room Air 06/30/17 07:38 36.8 96 18 136/88 (104) 95 Room Air 06/30/17 07:00 95 Room Air 06/30/17 06:27 93 Room Air 06/30/17 03:52 36.5 92 18 147/79 (101) 96 Nasal Cannula 2.0 06/30/17 00:30 Nasal Cannula 2.0 06/29/17 22:55 36.3 80 18 152/79 (103) 98 Nasal Cannula 3.0 Notes Mental Status: alert / awake / arousable, participated in evaluation Pt Amnestic to Procedure: Yes Nausea / Vomiting: improving with treatment Pain: improving with treatment Airway Patency, RR, SpO2: stable & adequate BP & HR: stable & adequate Hydration State: stable & adequate Anesthetic Complications: no major complications apparent
[2017-06-30] MEDS: METOPROLOL SUCC 50MG EXT REL TAB PO SCH (08:52)
[2017-06-30] MEDS: AMLODIPINE BESYLATE 5 MG TAB PO SCH (08:52)
[2017-06-30] MEDS: OXYCODONE HCL IR 5 MG TAB (IMMEDIATE RELEASE) PO PRN ×2 (09:37→16:31)
[2017-06-30] MEDS ORDERED: RXC5 PO (12:26)
--- NOTE | 2017-06-30 12:26 | Discharge Instructions ---
Discharge Instructions Date of Service Jun 30, 2017. Admission Reason for Admission: Lumbar Spinal Stenosis Discharge Discharge Diagnosis / Problem: lumbar stenosis Discharge Goals Goal(s): Improve function Activity Recommendations Activity Limitations: per Instructions/Follow-up section . Instructions / Follow-Up Instructions / Follow-Up ACTIVITY RECOMMENDATIONS: SELF CARE INSTRUCTIONS AFTER THORACIC/LUMBAR FUSIONS 1. You may walk to your tolerance. It is good exercise for your legs and back. Expect some back and intermittent leg aches and pains. 2. You may perform "counter-top" level activities (make a sandwich, arelis with a project, etc.). 3. No bending or lifting of more than 10 pounds or back twisting of any nature (roll like a log when turning in bed). 4. You may ride in a car for 20-30 minutes at a time. No driving until after your first visit with your doctor. 5. Frequent changes of position and restricting sitting to 30 minutes at a time will help limit the amount of back spasms and stiffness you may experience. 6. You may discontinue the use of ambulatory aids (cane, crutches, etc.) once your strength and confidence allow. 7. You may percussion instructor the shower and let water strike your incision when you arrive home at least once daily. Do not take a tub bath, sit in a hot tub or go into a swimming pool until after your first recheck in the office. SPECIAL CARE INSTRUCTIONS: VERY IMPORTANT TO READ AND REVIEW A. Your surgical incision has been closed with a cosmetic suture under the skin that will dissolve in about 6 weeks. In 14 days, you can use a pair of clean scissors and cut the suture that is left outside of the skin at the ends of your incision. 1. The small skin tapes can be removed 7 days after surgery if they have not fallen off by that point. 2. You may keep the wound open to air as much as possible to promote healing after post-op day number 5 unless told otherwise by your doctor. 3. If you think the wound looks like it is becoming infected (redness or worsening drainage) and/or you are experiencing fever, chill or worsening back pain and muscle spasms, contact the office so that we may evaluate you as soon as possible. B. Complications are uncommon, but please contact us if you have any signs or symptoms of: 1. wound infection (fever higher than 102.5 degrees F, redness, separation of wound, drainage, or increasing pain from the incision) 2. blood clots in legs (pain, swelling, redness and warmth in legs) 3. urinary tract infection (fever higher than 102.5 degrees F, burning upon urination or increased frequency of urination) 4. nerve problems (inability to walk on your toes or heels, numbness, loss of bowel or bladder control) 5. any other symptoms that concern you C. Please call the office at if you have any concerns or questions about your operation or recovery. D. No smoking! Smoking drastically decreases the chance of a solid fusion. E. Do not take any anti-inflammatory medications (Indocin, Advil, Motrin, Aspirin, Naprosyn, etc.) as these may inhibit the chance of a solid fusion. Tylenol is okay to take for pain. MANAGING PAIN AFTER SPINAL SURGERY 1. Narcotic medication is intended for short-term use and will be provided for surgical pain. Surgical pain usually lasts for a period of 4-6 weeks. Narcotic medication includes Percocet, Vicodin, Darvocet, Tylenol #3 or Lortab. 2. Longer-term pain is more appropriately treated with non-narcotic medication such as Tylenol ES. 3. Muscle spasm is not appropriately treated with narcotics. Muscle relaxers such as Soma, Flexeril or Skelaxin can be used along with Tylenol ES. 4. Remember that we all live with some "aches and pains". This is not unusual or uncommon after an injury or as we get older. a. Back pain is expected and may include muscle spasms for 4 to 6 weeks after surgery. The pain should gradually improve. If the pain worsens for no apparent reason, please contact the office. b. Intermittent leg pain may also be experienced and should not be concerned about unless it worsens for no apparent reason. If so, please contact the office. 5. We will provide appropriate medication within the normal guidelines of their prescribed use. We will also be very cautious and aware of potential abuse and extended duration of patients' medication needs. a. Pain medications are for your comfort and to assist with sleep and rest so that the tissue can heal. They are not provided in order to return to normal activity and should not be used through the day. To do so or worsening pain at night can result from ongoing tissue damage and development of tolerance to the prescribed medicine. 6. Please allow 2-3 days to process refills. Prescriptions will not be mailed but must be picked up at the office. FOLLOW UP VISIT: Keep your scheduled follow-up appointment. Any questions, please call the office at . Current Hospital Diet Patient's current hospital diet: Regular Diet Discharge Diet Recommended Diet: Regular Diet Procedures Procedures Performed: #1 revision decompression medial facetectomies foraminotomies L4 5 L5-S1. #2 posterior spinal fusion L4 5 L5-S1. #3 placement of posterior segmental instrumentation L4 5 L5-S1. #4 interbody fusion L4 5. #5 placement peek Cage 14 x 26 mm L4 5. 6 placement locally harvested morcellized autograft posterior gutters. #7 placement infuse collagen sponge by mask graft the posterior gutters and Jojo bone graft in the interbody space. Pending Studies Studies pending at discharge: no Medical Emergencies . Who to Call and When: Medical Emergencies: If at any time you feel your situation is an emergency, please call 911 immediately. . Non-Emergent Contact Non-Emergency issues call your: Primary Care Provider . "Provider Documentation" section prepared by Guicho Gooden. . VTE Core Measure Inpt VTE Proph given/why not?: Dian Bates, [facility]
[2017-06-30] MEDS ORDERED: KETOROLAC TROMETHAMINE 30 MG/ML VIAL IV PRN (12:30)
--- NOTE | 2017-06-30 12:32 | Progress Note ---
Progress Note Date of Service Jun 30, 2017. Progress Note Patient notes improvement in his leg symptoms. Back pain is controlled. Vital signs are stable. MARY drain decreasing appropriate. Examination strength testing appears comfortable. Assessment status post lumbar continue to encourage physical therapy advance his bowel regimen. Hopefully discharge home the next few days.
[2017-06-30] MEDS: ALUMINUM/MAGNESIUM SUSP 30 ML UDC PO PRN (16:35)
[2017-06-30] MEDS: BISACODYL 10 MG SUPP PR PRN (20:00)
[2017-06-30] MEDS: SIMVASTATIN 80 MG TAB PO SCH (20:53)
[2017-06-30] MEDS: DOCUSATE SODIUM/SENNA 50/8.6MG TAB PO SCH (20:53)
[2017-07-01] MEDS: POLYETHYLENE (MIRALAX) 17 GM PACK PO SCH ×3 (00:03→11:32)
[2017-07-01 06:45] VITALS: BP 123/76; PULSE 83; TEMP 36.5; O2SAT 93
[2017-07-01] MEDS: OXYCODONE HCL IR 5 MG TAB (IMMEDIATE RELEASE) PO PRN ×4 (07:28→23:47)
[2017-07-01] MEDS: PANTOprazole SOD 40 MG TAB PO PRN (07:29)
[2017-07-01] MEDS: METOPROLOL SUCC 50MG EXT REL TAB PO SCH (07:29)
[2017-07-01] MEDS: AMLODIPINE BESYLATE 5 MG TAB PO SCH (07:29)
[2017-07-01 07:55] VITALS: BP 148/86; PULSE 84; TEMP 36.8; O2SAT 96
[2017-07-01 08:01] VITALS: O2SAT 96
[2017-07-01] MEDS: BISACODYL 10 MG SUPP PR PRN (10:46)
--- NOTE | 2017-07-01 14:04 | Progress Note ---
Progress Note Date of Service Jul 01, 2017. Progress Note Patient's back pain is controlled. He feels his leg symptoms are improving. He is ambulating well with a walker. On exam he has good strength testing is sitting in chair comfortably. Assessment status post lumbar decompression fusion. Planned this time will maintain the MARY drain this evening anticipate discharge home tomorrow.
[2017-07-01] MEDS ORDERED: NURSING VERBAL MED ORDER ONE (14:30)
[2017-07-01 15:36] VITALS: BP 138/80; PULSE 77; TEMP 36.6; O2SAT 96
[2017-07-01] MEDS: ALUMINUM/MAGNESIUM SUSP 30 ML UDC PO PRN (19:45)
[2017-07-01] MEDS: DOCUSATE SODIUM/SENNA 50/8.6MG TAB PO SCH (20:58)
[2017-07-01] MEDS: SIMVASTATIN 80 MG TAB PO SCH (20:58)
[2017-07-01 23:18] VITALS: BP 134/78; PULSE 74; TEMP 36.8; O2SAT 94
[2017-07-02] MEDS: OXYCODONE HCL IR 5 MG TAB (IMMEDIATE RELEASE) PO PRN ×2 (05:40→09:57)
[2017-07-02 07:33] VITALS: BP 146/61; PULSE 74; TEMP 36.5; O2SAT 94
--- NOTE | 2017-07-02 08:27 | Discharge Summary ---
Orthopedic Discharge Summary Admission Date/Reason Jun 29, 2017 at 11:30 Lumbar Spinal Stenosis. Discharge Date/Disposition Jul 02, 2017 Home Diagnosis Principal Diagnosis: Lumbar stenosis Admission Physical Exam As per Admitting History & Physical. Hospital Course Patient underwent lumbar decompression fusion tolerated this well as taken to the orthopedic floor postoperatively postop day #1 exhibit amatory progress to postoperative day #2. Postoperative day #3 MARY drain decreased appropriately bowels working well pain controlled subsequently discharged home discharge orders and instructions found on the chart for further review. Discharge Instructions Please refer to the electronic Patient Visit Report (Discharge Instructions) for additional information.
[2017-07-02] MEDS: PANTOprazole SOD 40 MG TAB PO PRN (09:14)
[2017-07-02] MEDS: METOPROLOL SUCC 50MG EXT REL TAB PO SCH (09:14)
[2017-07-02] MEDS: AMLODIPINE BESYLATE 5 MG TAB PO SCH (09:14)
[2017-07-02 09:33] VITALS: BP 146/61; PULSE 74; TEMP 36.5; O2SAT 94
== END 2017-07-02 10:36 | disposition home or self-care (01) | DRG 460 ==
LOC: C.ACU 10:05 → C.3E 11:30 → ENRESERV 15:19
PROVIDERS: ADMIT Orthopaedic Surgery Orthopaedic Surgery of the Spine; ATTEND Orthopaedic Surgery Orthopaedic Surgery of the Spine
PROC: 0SG00AJ Fusion of Lumbar Vertebral Joint with Interbody Fusion Device, Posterior Approach, Anterior Column, Open Approach (ICD-10-PCS; principal; 2017-06-29 12:15)
PROC: 0SG3071 Fusion of Lumbosacral Joint with Autologous Tissue Substitute, Posterior Approach, Posterior Column, Open Approach (ICD-10-PCS; principal; 2017-06-29 12:15)
PROC: 3E0U0GB Introduction of Recombinant Bone Morphogenetic Protein into Joints, Open Approach (ICD-10-PCS; principal; 2017-06-29 12:15)
PROC: 0SG0071 Fusion of Lumbar Vertebral Joint with Autologous Tissue Substitute, Posterior Approach, Posterior Column, Open Approach (ICD-10-PCS; principal; 2017-06-29 12:15)
PROC: 0ST20ZZ Resection of Lumbar Vertebral Disc, Open Approach (ICD-10-PCS; principal; 2017-06-29 12:15)
DX: M48.06 Spinal stenosis, lumbar region (principal); I10 Essential (primary) hypertension; E78.5 Hyperlipidemia, unspecified; K21.9 Gastro-esophageal reflux disease without esophagitis; M21.372 Foot drop, left foot; M26.609 Unspecified temporomandibular joint disorder, unspecified side; E66.9 Obesity, unspecified; Z68.33 Body mass index [BMI] 33.0-33.9, adult; Z79.899 Other long term (current) drug therapy